=== PATIENT | male | born 2005 | race Caucasian/White ===

== ENCOUNTER 2023-09-29 21:07 | Emergency (ER) | payer OTHER ==
[~2023-09-29] VITALS: Ht 162.6 cm; Wt 50.1 kg
[2023-09-29 21:37] VITALS: BP_SYST 117; BP_SYST 124; BP_DIAS 65; BP_DIAS 67; PULSE 67; PULSE 74; RESP 16; RESP 17; TEMP 97.9; TEMP 98.4; O2SAT 100; O2SAT 99
[2023-09-29 22:37] LABS: APPEARANCE,URINE CLEAR (CLEAR); BILIRUBIN,URINE NEGATIVE (NEGATIVE); BLOOD, URINE 1+ (NEGATIVE); COLOR,URINE YELLOW (YELLOW); LEUKOCYTE ESTERASE ,URINE NEGATIVE (NEGATIVE); NITRITE, URINE NEGATIVE (NEGATIVE); PROTEIN,URINE TRACE (NEGATIVE); UGLUCOSE NEGATIVE (NEGATIVE); UROBILINOGEN,URINE 0.2 EU/dL (0.2 - 1)
[2023-09-29 22:47] LABS: RBC,URINE 0-5 /HPF (0-5)
[2023-09-29 22:48] LABS: BACTERIA,URINE FEW /HPF (None Seen); MUCUS,URINE None Seen /LPF (None Seen); SQUAMOUS EPITHELIAL CELL,UR 0-3 (FEW) /LPF (0-3 (FEW)); WBC,URINE 0-5 /HPF (0-5)
[2023-09-29 23:59] LABS: AMPHETAMINE, URINE NEGATIVE ng/ml (NEG <=1000); BARBITURATE, URINE NEGATIVE ng/ml (NEG <=200); BENZODIAZEPINE, URINE NEGATIVE ng/mL (NEG <=200); CANNABINOID, URINE POSITIVE ng/mL (NEG <=50); COCAINE, URINE NEGATIVE ng/mL (NEG <=300); OPIATE, URINE NEGATIVE ng/mL (NEG <=2000); PHENCYCLIDINE SCREEN,URINE NEGATIVE ng/mL (NEG <=25)
[2023-09-30] MEDS ORDERED: ONDA-188 SL (00:08)
[2023-09-30] MEDS: ONDANSETRON 4 MG ODT PO ONE (00:20)
== END 2023-09-30 00:31 | disposition home or self-care (01) ==
LOC: MED 21:07
DX: R11.2 Nausea with vomiting, unspecified (principal); R10.13 Epigastric pain; F12.90 Cannabis use, unspecified, uncomplicated; R51.9 Headache, unspecified; J45.909 Unspecified asthma, uncomplicated; Z90.49 Acquired absence of other specified parts of digestive tract; Z79.899 Other long term (current) drug therapy
CPT/HCPCS: 80305; 81001; 99283; Q0162